=== PATIENT | female | born 1975 | race African-American/Black ===

== ENCOUNTER 2022-10-10 15:14 | Emergency (ER) | payer BC ==
[2022-10-10] MEDS ORDERED: Ketorolac Tromethamine 30 MG/ML VIAL ONE ×2 (17:46)
== END 2022-10-10 17:56 | disposition home or self-care (01) ==
LOC: CSHERS 15:14
DX: M54.32 Sciatica, left side (principal)
CPT/HCPCS: 96372; J1885